=== PATIENT | male | born 1990 | race African-American/Black ===

== ENCOUNTER 2016-06-22 15:19 | Emergency (ER) | payer OTHER ==
[~2016-06-22] VITALS: Ht 175.3 cm; Wt 104.3 kg
[2016-06-22 16:49] VITALS: BP 169/76
--- NOTE | 2016-06-22 17:35 | PHYS DOC ---
Past Medical History Past Medical History: Anxiety, Bipolar, Depression, Schizophrenia Past Surgical History: No Surgical History Alcohol Use: Occasionally Drug Use: Cocaine, Marijuana, Phencyclidine Adult General Chief Complaint Chief Complaint: TONGUE SWELLING/INJURY [facility] Patient is a 25 year old male presents for a sore on the tongue for three days. Denies fever, injury, or medical problems. Very uncoperative with exam. Initially left department and then returned. Gcs 15. Review of Systems Review of Systems Constitutional: Denies fever or chills Eyes: Denies change in visual acuity, redness, or eye pain HENT: Denies nasal congestion or sore throat, Sore on tongue three days Respiratory: Denies cough or shortness of breath Cardiovascular: No additional information not addressed in [facility] GI: Denies abdominal pain, nausea, vomiting, bloody stools or diarrhea : Denies dysuria or hematuria Musculoskeletal: Denies back pain or joint pain Integument: Denies rash or skin lesions Neurologic: Denies headache, focal weakness or sensory changes Endocrine: Denies polyuria or polydipsia [] Allergies Allergies Allergies Coded Allergies Type Severity Reaction Last Updated Verified amphetamine Allergy Unknown GYNECOMASTIA 06/03/15 Yes dextroamphetamine Allergy Unknown GYNECOMASTIA 06/03/15 Yes risperidone Allergy Unknown GYNECOMASTIA 06/03/15 Yes Physical Exam Physical Exam Constitutional: Well developed, well nourished, no acute distress, non-toxic appearance. HENT: Normocephalic, atraumatic, bilateral external ears normal, oropharynx moist, no oral exudates, nose normal. Small ulcer to end of tongue Eyes: PERRLA, EOMI, conjunctiva normal, no discharge. [] Neck: Normal range of motion, no tenderness, supple, no stridor. [] Cardiovascular:Heart rate regular rhythm, no murmur [] Lungs & Thorax: Bilateral breath sounds clear to auscultation [] Abdomen: Bowel sounds normal, soft, no tenderness, no masses, no pulsatile masses. [] Skin: Warm, dry, no erythema, no rash. [] Back: No tenderness, no CVA tenderness. [] Extremities: No tenderness, no cyanosis, no clubbing, ROM intact, no edema. [] Neurologic: Alert and oriented X 3, normal motor function, normal sensory function, no focal deficits noted. [] Psychologic: Affect normal, judgement normal, mood normal. [] Current Patient Data Vital Signs Vital Signs Date Time Temp Pulse Resp B/P Pulse Ox O2 Delivery O2 Flow Rate FiO2 06/22/16 16:49 98.0 77 16 97 Room Air 98.0 EKG EKG [] Radiology/Procedures Radiology/Procedures [] Impressions: 1. Aphthous ulcer Course & Med Decision Making Course & Med Decision Making Pertinent Labs and Imaging studies reviewed. (See chart for details) [] Dragon Disclaimer Dragon Disclaimer This electronic medical record was generated, in whole or in part, using a voice recognition dictation system. Departure Departure Impression: Primary Impression: Patient left without being seen Additional Impression: Left against medical advice Disposition: 07 AGAINST MEDICAL ADVICE Condition: LEFT WITHOUT BEING SEEN Problem Qualifiers TULIO GUERRERO APRN Jun 22, 2016 17:35
== END 2016-06-22 17:30 | disposition left against medical advice (07) ==
LOC: ER 15:19
DX: K13.79 Other lesions of oral mucosa (principal); F12.10 Cannabis abuse, uncomplicated; F14.10 Cocaine abuse, uncomplicated; F16.10 Hallucinogen abuse, uncomplicated; Z88.8 Allergy status to other drugs, medicaments and biological substances; Z53.21 Procedure and treatment not carried out due to patient leaving prior to being seen by health care provider
CPT/HCPCS: 99281